=== PATIENT | female | born 1980 | race Caucasian/White ===

== ENCOUNTER 2018-08-29 15:44 | Emergency (ER) | payer OTHER ==
[2018-08-29 16:34] VITALS: BP 113/53
--- NOTE | 2018-08-29 17:02 | RAD ---
HISTORY: PAIN S/P TRAUMA COMPARISONS: None VIEWS: 3 , Frontal, lateral, and oblique views of the left ankle FINDINGS: BONE DENSITY: Normal. BONES: There is no displaced fracture. There is a posterior calcaneal enthesophyte. JOINTS: There is no arthropathy. ALIGNMENT: There is no dislocation. SOFT TISSUES: Unremarkable. OTHER FINDINGS: None. IMPRESSION: NO ACUTE OSSEOUS INJURY. IF SYMPTOMS PERSIST, RECOMMEND REPEAT IMAGING.
--- NOTE | 2018-08-29 17:15 | UC ---
Lower Extremity/Ankle HPI - HPI Summary HPI Summary: 3-year-old woman comes to clinic today with a chief complaint of left ankle pain. Patient reports this happened about a week and half ago while at work. She was walking backwards and she twisted her left ankle. The pains got worse over the week and a half. Pain now radiates up into her low back. She does have a history of low back problems and has had sciatica in the past. She does not feel like the pain starts in the back and goes down to the ankle. Pain is worse with certain motions of the ankle. No numbness or weakness. Patient reports she's been taking ibuprofen 800 mg every 4 hours. - History of Current Complaint Chief Complaint: UCLowerExtremity Stated Complaint: ANKLE INJURY Time Seen by Provider: 08/29/18 17:14 Pain Intensity: 6 - Allergies/Home Medications Allergies/Adverse Reactions: Allergies Allergy/AdvReac Type Severity Reaction Status Date / Time Adhesive Tape Allergy Mild Rash Verified 08/29/18 16:35 bacitracin Allergy Rash Verified 08/29/18 16:35 [From Triple Antibiotic] neomycin Allergy Rash Verified 08/29/18 16:35 [From Triple Antibiotic] polymyxin B Allergy Rash Verified 08/29/18 16:35 [From Triple Antibiotic] Home Medications: Home Medications ALPRAZolam TAB* [Xanax TAB*] 0.5 mg PO DAILY PRN 08/29/18 [History Confirmed ] Ibuprofen TAB* [Motrin TAB* 800 MG] 800 mg PO Q4H PRN 08/29/18 [History Confirmed 08/29/18] lamoTRIgine TAB(*) [LaMICtal TAB(*)] 200 mg PO DAILY 08/29/18 [History Confirmed 08/29/18] PMH/Surg Hx/FS Hx/Imm Hx Psychological History: Depression - Surgical History Surgical History: Yes Surgery Procedure, Year, and Place: 2007 [facility] - Family History Known Family History: Negative: Diabetes - Social History Alcohol Use: None Substance Use Type: None Smoking Status (MU): Former Smoker Review of Systems Constitutional: Negative Skin: Negative Eyes: Negative ENT: Negative Respiratory: Negative Cardiovascular: Negative Gastrointestinal: Negative Motor: Negative Neurovascular: Negative Musculoskeletal: Other: - SEE HPI Neurological: Negative Psychological: Negative Is Patient Immunocompromised?: No All Other Systems Reviewed And Are Negative: Yes Physical Exam Triage Information Reviewed: Yes Appearance: Well-Appearing, No Pain Distress, Well-Nourished Vital Signs: Initial Vital Signs Temp 98.3 F 08/29/18 16:27 Pulse 64 08/29/18 16:27 Resp 16 08/29/18 16:27 BP 113/53 08/29/18 16:27 Pulse Ox 99 08/29/18 16:27 Eye Exam: Normal Eyes: Positive: Conjunctiva Clear Neck exam: Normal Neck: Positive: Supple, Nontender Respiratory: Positive: No respiratory distress Musculoskeletal: Positive: Other: - Patient has mild tenderness left lower back. There is some swelling on the lateral aspect of the ankle just distal to the fibula. This is tender to palpation. The sole of foot is nontender to palpation the rest is nontender to palpation. Normal capillary refill normal pulses no sensation deficits. Neurological Exam: Normal Neurological: Positive: Alert, Muscle Tone Normal Psychological Exam: Normal Psychological: Positive: Age Appropriate Behavior Skin Exam: Normal Lower Extremity Course/Dx - Course Course Of Treatment: Order Information: ANKLE LEFT 3+VWS. Accession Number: [id number]. CPT: 12082. HISTORY: PAIN S/P TRAUMA. COMPARISONS: None. VIEWS : 3 , Frontal, lateral, and oblique views of the left ankle. FINDINGS: BONE DENSITY: Normal. BONES: There is no displaced fracture. There is a posterior calcaneal enthesophyte. JOINTS: There is no arthropathy. ALIGNMENT: There is no dislocation. SOFT TISSUES: Unremarkable. OTHER FINDINGS: None. IMPRESSION : NO ACUTE OSSEOUS INJURY. IF SYMPTOMS PERSIST, RECOMMEND REPEAT IMAGING. ____ . <Electronically signed by Mukesh Medellin MD in OV> 08/29/18 [id number]. I discussed the x-ray reports with the patient. I also discussed with the patient the correct dosing of ibuprofen. I let her know to not take more than a total of 2400 mg a day. The plan is Scott wrap and gel splint. Patient declined crutches. Prescription for [place] and only correct dosing of ibuprofen. Follow-up with primary care doctor recheck here sooner if worse. - Differential Dx/Diagnosis Provider Diagnoses: ANKLE SPRAIN Discharge - Sign-Out/Discharge Documenting (check all that apply): Patient Departure All imaging exams completed and their final reports reviewed: Yes - Discharge Plan Condition: Stable Disposition: HOME Prescriptions: HYDROcodone/ACETAMIN 5-325 MG* [[place] 5-325 TAB*] 1 tab PO Q4H PRN #20 tab MDD 6 PRN Reason: Pain Patient Education Materials: Ankle Sprain (ED), Sciatica (ED) Forms: *Work Release Referrals: Sajan Estrada MD [Primary Care Provider] - Additional Instructions: FOLLOW UP WITH YOUR DOCTOR. GET RECHECKED FOR ANY WORSENING OF YOUR CONDITION OR QUESTIONS OR CONCERNS. - Billing Disposition and Condition Condition: STABLE Disposition: Home
== END 2018-08-29 17:56 | disposition home or self-care (01) ==
LOC: UCEAST 15:44
DX: S93.402A Sprain of unspecified ligament of left ankle, initial encounter (principal); M54.5 Low back pain; F32.9 Major depressive disorder, single episode, unspecified; Z88.2 Allergy status to sulfonamides; Z88.1 Allergy status to other antibiotic agents; Z91.048 Other nonmedicinal substance allergy status; Z79.899 Other long term (current) drug therapy; Z87.891 Personal history of nicotine dependence; X50.9XXA Other and unspecified overexertion or strenuous movements or postures, initial encounter; Y92.9 Unspecified place or not applicable
CPT/HCPCS: 99213; G0463

== ENCOUNTER 2018-10-17 11:09 | Emergency (ER) | payer OTHER ==
[2018-10-17 11:35] VITALS: BP 111/68
[2018-10-17] MEDS ORDERED: Tetracaine 0.5% OPTH.SOL 4 ML* 1 DROP BTL LEFT EYE ONE (12:10)
[2018-10-17] MEDS ORDERED: Fluorescein Sodium TOPICAL* 1 MG TEST STRIP OPHTHALMIC ONE (12:10)
[2018-10-17] MEDS ORDERED: Tetan/Diph/Pertus SYR(Tdap)* 0.5 ML SYR(BOOSTRIX) use SYR IM ONE (12:14)
--- NOTE | 2018-10-17 12:32 | ED ---
Throat Pain/Nasal Congestion - HPI Summary HPI Summary: Pt presents w/ Lt eye injury prior to arrival. 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 No pain but had FB sensation and "whitish/blurred" area in vision over Lt central eye. Unsure of last tetanus vaccine. No simi visual loss - eye is watery from irritation but no bleeding. No other sx as a result of injury. Does not wear contact lenses. Allergic to bacitracin, neomycin. - History of Current Complaint Chief Complaint: UCEye Time Seen by Provider: 10/17/18 11:52 Hx Obtained From: Patient - Allergies/Home Medications Allergies/Adverse Reactions: Allergies Allergy/AdvReac Type Severity Reaction Status Date / Time Adhesive Tape Allergy Mild Rash Verified 10/17/18 11:35 bacitracin Allergy Rash Verified 10/17/18 11:35 [From Triple Antibiotic] neomycin Allergy Rash Verified 10/17/18 11:35 [From Triple Antibiotic] polymyxin B Allergy Rash Verified 10/17/18 11:35 [From Triple Antibiotic] ziprasidone [From Geodon] Allergy See Comment Verified 10/17/18 11:35 Home Medications: Home Medications Lurasidone(*) [Latuda] 20 mg PO DAILY 10/17/18 [History Confirmed 10/17/18] PMH/Surg Hx/FS Hx/Imm Hx Previously Healthy: Yes Endocrine/Hematology History: Denies: Hx Anticoagulant Therapy, Autoimmune Disease Sensory History: Denies: Hx Contacts or Glasses Opthamlomology History: Denies: Hx Contacts or Glasses - Surgical History Surgery Procedure, Year, and Place: 2007 [facility] - Immunization History Immunizations Up to Date: Unable to Obtain/Confirm Infectious Disease History: No Infectious Disease History: Denies: Hx of Known/Suspected MRSA, Traveled Outside the [place] in Last 30 Days - Family History Known Family History: Negative: Diabetes - Social History Occupation: Employed Full-time - [employer] Lives: With Family Alcohol Use: Occasionally Hx Substance Use: No Substance Use Type: Reports: None Hx Tobacco Use: Yes - not currently Smoking Status (MU): Former Smoker Review of Systems Constitutional: Negative Eyes: Other - Lt eye sx ENT: Negative Gastrointestinal: Negative Negative: Vomiting, Nausea Positive: no symptoms reported Skin: Negative Negative: Bruising - no skin injury as a result Neurological: Negative Positive: Anxious - upset that she's injured herself 2x at work in a short period of time All Other Systems Reviewed And Are Negative: Yes Physical Exam Triage Information Reviewed: Yes Vital Signs On Initial Exam: Initial Vitals Temp Pulse Resp BP Pulse Ox 98.5 F 75 14 111/68 97 10/17/18 11:31 1218 11:31 12 11:31 12 11:31 12 11:31 Vital Signs Reviewed: Yes Appearance: Positive: Well-Appearing, No Pain Distress, Well-Nourished Skin: Positive: Warm, Skin Color Reflects Adequate Perfusion, Dry - no erythema , no edema about the Lt eye/face Head/Face: Positive: Normal Head/Face Inspection Eyes: Positive: EOMI, MARTIN - no photophobia, Conjunctiva Clear, Discharge - watery, Other: - Lt central cornea with fine white linear abrasion seen with natrual light (appears to be superficial) - confirmed w/ fluoresceine uptake application and Wood's lamp; a 2nd abrasion is noted just medial and superior to longer linear lac (also appears to be superficial) - no FB bserved; (-) Siedel's sign ENT: Positive: Normal ENT inspection, Hearing grossly normal, Pharynx normal Respiratory/Lung Sounds: Positive: Breath Sounds Present Cardiovascular: Positive: Normal Musculoskeletal: Positive: Normal, Strength/ROM Intact Neurological: Positive: Normal, Sensory/Motor Intact, Alert, Oriented to Person Place, Time, CN Intact II-III, Other - all 4 visual anderson tested unilaterally and bilaterally w/ loss or change in vision Psychiatric: Positive: Anxious - tearful at times but consolable - reports this is not d/t pain but rather feeling upset about incident - relieved w/ dx and tx plan Procedures - Eye Procedure Left Alcaine Drops Administered: No - tetracaine + fluoresceine Eye Irrigated w/ Saline (ccs): 3 Diagnostics - Vital Signs Vital Signs Temp Pulse Resp BP Pulse Ox 10/17/18 11:31 98.5 F 75 14 111/68 97 - Laboratory Lab Statement: Any lab studies that have been ordered have been reviewed, and results considered in the medical decision making process. EENT Course/Dx - Diagnoses Provider Diagnoses: Left corneal abrasion Discharge - Sign-Out/Discharge Documenting (check all that apply): Patient Departure All imaging exams completed and their final reports reviewed: No Studies - Discharge Plan Condition: Stable Disposition: HOME Prescriptions: Ciprofloxacin 0.3% OPTH.DUANE* [Cipro 0.3% Opth*] 2 drop LEFT EYE Q2H #1 btl Patient Education Materials: Corneal Abrasion (ED) Forms: *Work Release Referrals: Jose Banks MD [Medical Doctor] - Additional Instructions: Use medicated eye drops as directed. Follow-up with Dr. Banks tomorrow - call today to schedule an appointment *If you develop acute eye pain, swelling, change in vision, headache, fever, go to the ED - Billing Disposition and Condition Condition: STABLE Disposition: Home
== END 2018-10-17 12:42 | disposition home or self-care (01) ==
LOC: UCEAST 11:09
DX: S05.02XA Injury of conjunctiva and corneal abrasion without foreign body, left eye, initial encounter (principal); Z88.8 Allergy status to other drugs, medicaments and biological substances; W22.8XXA Striking against or struck by other objects, initial encounter; Y93.H2 Activity, gardening and landscaping; Y92.214 College as the place of occurrence of the external cause; Z87.891 Personal history of nicotine dependence; Y99.0 Civilian activity done for income or pay
CPT/HCPCS: 90715; 99212; A9270-GY; G0463

== ENCOUNTER 2019-10-13 13:09 | Emergency (ER) | payer OTHER ==
[2019-10-13 13:26] VITALS: BP 120/79
[2019-10-13] MEDS ORDERED: Ibuprofen TAB* 600 MG PO ONE (13:56)
[2019-10-13] MEDS ORDERED: Ketorolac INJ* 30 MG/ML 1 ML VIAL IM ONE (14:01)
--- NOTE | 2019-10-13 14:06 | UC ---
Shoulder Pain HPI - HPI Summary HPI Summary: Pt presents with left shoulder pain progressive x 2 weeks. pt is RHD. AT work pt has been shoveling and holding large salt bucket under left arm while throwing salt. pt has taken APAP 500mg and motrin 400mg with little improvement. no other injuries. No neck or back pain no elbow, wrist pain no previous injury to shoulder Pt's medications as entered in EMR by screw remover were reviewed - History of Current Complaint Chief Complaint: UCUpperExtremity Stated Complaint: SHOULDER INJURY Time Seen by Provider: 10/13/19 13:29 Hx Obtained From: Patient, Family/Secret Service Agent Hx Last Menstrual Period: iud ?: No Pain Intensity: 10 - Allergies/Home Medications Allergies/Adverse Reactions: Allergies Allergy/AdvReac Type Severity Reaction Status Date / Time Adhesive Tape Allergy Mild Rash Verified 10/15/19 07:23 bacitracin Allergy Rash Verified 10/15/19 07:23 [From Triple Antibiotic] neomycin Allergy Rash Verified 10/15/19 07:23 [From Triple Antibiotic] polymyxin B Allergy Rash Verified 10/15/19 07:23 [From Triple Antibiotic] ziprasidone [From Geodon] Allergy See Comment Verified 10/15/19 07:23 Home Medications: Home Medications Brexpiprazole (Nf) [Rexulti] 1 tab PO DAILY 10/13/19 [History Confirmed 10/13/19 ] PMH/Surg Hx/FS Hx/Imm Hx Previously Healthy: Yes - Surgical History Surgical History: Yes Surgery Procedure, Year, and Place: 2007 [facility] - Family History Known Family History: Positive: Non-Contributory Negative: Diabetes - Social History Occupation: Employed Full-time Lives: With Family Alcohol Use: Occasionally Substance Use Type: None Smoking Status (MU): Former Smoker Review of Systems All Other Systems Reviewed And Are Negative: Yes Motor: Positive: Other - right shoulder pain Physical Exam - Summary Physical Exam Summary: Vital Signs Reviewed: Yes A+Ox3,- holding arm to body -obvious pain Eyes: Conjunctiva Clear, MARTIN. EOM intact and full ENT: Hearing grossly normal TM x 2 clear, mmoist, uvula midline, no exudate, no erythema Neck: Positive: Supple Respiratory: Positive: No respiratory distress, No accessory muscle use + CTA throughout no w/r Cardiovascular: RRR nl s1, s2 no m/r CBT <2 sec 2+ radial/ulnar abd soft + BS nt/nd no guarding, no distension Musculoskeletal Exam: No pain c/t/l/s Full AROM c spin Full AROM LE b/j LUE: full ROM RUE: pain with palpation left prox lateral humerus pain with extension and abduction - pain along lateral humerus - no crepitus + flex.ext elbow, wrist + pronate/supinate Neurological: Positive: Alert, + sensation throughout + thumb up, a ok finger cross, finger spread + lateral patch sensation Psychological: Positive: Normal Response To senior accounting analyst Skin: Positive: no rash, no ecchymosis, small non-suturable abraison right anterior forehead (1 cm) non suturable Vital Signs: Initial Vital Signs Temp 98 F 10/13/19 13:23 Pulse 80 10/13/19 13:23 Resp 18 10/13/19 13:23 BP 120/79 10/13/19 13:23 Pulse Ox 100 10/13/19 13:23 Re-Evaluation - Re-Evaluation First Eval Comment: delay in xray read - reviewed with pt - concernd for calcified tendonitis. demonstrated circles, flex/ext elbow. sling. motrin/apap. work note. f/u with [employer] and sports. pt omfortable and in agreement with plan Shoulder Course/Dx - Course Course Of Treatment: Pt with left shoulder pain progressive after shoveling snow and throwing salt at worl. Pt is RHD. no other injuries on exam, pt apparent discomfort + TTP let latera prox shoulder pain increases with active movement > 45 slight improved passive will give IM toradol - no analgesia taken today sling imaging reassess - Differential Dx/Diagnosis Provider Diagnosis: Calcific tendinitis of left shoulder Discharge ED - Sign-Out/Discharge Documenting (check all that apply): Patient Departure All imaging exams completed and their final reports reviewed: No - Discharge Plan Condition: Stable Disposition: HOME Prescriptions: HYDROcodone/ACETAMIN 5-325 MG* [[place] 5-325 TAB*] 1 tab PO Q6H PRN #20 tab MDD 4 PRN Reason: Pain Patient Education Materials: Rotator Cuff Tendinitis (ED) Forms: *Work Release Referrals: [facility] [Provider Group] Alberto Rock MD [Medical Doctor] - Jessica Cruz MD [Primary Care Provider] - Additional Instructions: - Wear sling for comfort and support. relax your shoulder so the sling holds the weight of your shoulder - Take your arm outside of your sling and fully bend/stretching of elbow and makes small circles at your shoulder as demonstrated in the urgent care - Apply ice (20 min at a time) every 2-3 hours for the next 2 days -Okay to alternate ibuprofen (Advil, Motrin) and Tylenol every 3 hours for pain. Take with food. Do NOT take for more than 4-5 days. - Take steroid medication as prescribed until gone -Contact the sports medicine provider and Dr. Rock on Tuesday to schedule a follow-up appointment. . Contact your doctor or return with questions or concerns - Billing Disposition and Condition Condition: STABLE Disposition: Home
--- NOTE | 2019-10-13 15:38 | UC ---
- Progress Note Progress Note: RADIOLOGY REPORT REVIEWED. CONFIRMS CALCIFIC TENDINOSIS. NO FRACTURE. NO CHANGE IN MGMT. Course/Dx - Diagnoses Provider Diagnoses: Calcific tendinitis of left shoulder Discharge ED - Sign-Out/Discharge Documenting (check all that apply): Post-Discharge Follow Up All imaging exams completed and their final reports reviewed: Yes - Discharge Plan Condition: Stable Disposition: HOME Patient Education Materials: Rotator Cuff Tendinitis (ED) Forms: *Work Release Referrals: [facility] [Provider Group] Alberto Rock MD [Medical Doctor] - Jessica Cruz MD [Primary Care Provider] - Additional Instructions: - Wear sling for comfort and support. relax your shoulder so the sling holds the weight of your shoulder - Take your arm outside of your sling and fully bend/stretching of elbow and makes small circles at your shoulder as demonstrated in the urgent care - Apply ice (20 min at a time) every 2-3 hours for the next 2 days -Okay to alternate ibuprofen (Advil, Motrin) and Tylenol every 3 hours for pain. Take with food. Do NOT take for more than 4-5 days. - Take steroid medication as prescribed until gone -Contact the sports medicine provider and Dr. Rock on Tuesday to schedule a follow-up appointment. . Contact your doctor or return with questions or concerns - Billing Disposition and Condition Condition: STABLE Disposition: Home
== END 2019-10-13 15:20 | disposition home or self-care (01) ==
LOC: UCEAST 13:09
DX: M75.32 Calcific tendinitis of left shoulder (principal); Z91.09 Other allergy status, other than to drugs and biological substances; Z88.1 Allergy status to other antibiotic agents; Z88.8 Allergy status to other drugs, medicaments and biological substances; Z87.891 Personal history of nicotine dependence
CPT/HCPCS: 99212; G0463; J1885

== ENCOUNTER 2019-10-15 07:08 | Emergency (ER) | payer SELFPAY ==
[2019-10-15 07:31] VITALS: BP 116/65
--- NOTE | 2019-10-15 07:57 | UC ---
Shoulder Pain HPI - HPI Summary HPI Summary: Ms. Bhatia was seen here a couple days ago after hurting her left shoulder. She has been wearing a sling and taking ibuprofen as instructed but the pain is keeping her from sleeping. She is here to request pain medication. - History of Current Complaint Chief Complaint: UCUpperExtremity Stated Complaint: SHOLDER PAIN Time Seen by Provider: 10/15/19 07:34 Hx Obtained From: Patient, Family/Batteryman Hx Last Menstrual Period: no period Onset/Duration: Sudden Onset Timing: Constant Severity Initially: Severe Severity Currently: Severe Pain Intensity: 9 Character: Aching Aggravating Factor(s): Movement Alleviating Factor(s): Nothing Associated Signs And Symptoms: Positive: Negative - Allergies/Home Medications Allergies/Adverse Reactions: Allergies Allergy/AdvReac Type Severity Reaction Status Date / Time Adhesive Tape Allergy Mild Rash Verified 10/15/19 07:23 bacitracin Allergy Rash Verified 10/15/19 07:23 [From Triple Antibiotic] neomycin Allergy Rash Verified 10/15/19 07:23 [From Triple Antibiotic] polymyxin B Allergy Rash Verified 10/15/19 07:23 [From Triple Antibiotic] ziprasidone [From Geodon] Allergy See Comment Verified 10/15/19 07:23 Home Medications: Home Medications Acetaminophen [Acetaminophen Extra Strength] 1,000 mg PO ONCE 10/15/19 [History Confirmed 10/15/19] PMH/Surg Hx/FS Hx/Imm Hx Psychological History: Anxiety - Surgical History Surgical History: Yes Surgery Procedure, Year, and Place: 2007 [facility]. 2016 [facility] - Family History Known Family History: Negative: Diabetes - Social History Alcohol Use: Occasionally Substance Use Type: None Smoking Status (MU): Former Smoker Review of Systems All Other Systems Reviewed And Are Negative: Yes Motor: Positive: Decreased ROM Neurovascular: Positive: Negative Musculoskeletal: Positive: Decreased ROM Physical Exam - Summary Physical Exam Summary: She is nontoxic in appearance with stable vitals. Triage Information Reviewed: Yes Appearance: Well-Appearing, Obese Vital Signs: Initial Vital Signs Temp 99 F 10/15/19 07:25 Pulse 89 10/15/19 07:25 Resp 18 10/15/19 07:25 BP 116/65 10/15/19 07:25 Pulse Ox 100 10/15/19 07:25 Vital Signs Reviewed: Yes Cardiovascular: Positive: Pulses Normal Musculoskeletal: Positive: ROM Limited @ Shoulder Course/Dx - Course Course Of Treatment: Her pain is not currently controlled. I will give her a short course of Sixes. We discussed the issues with taking an opioid and she agreed to stop taking her Xanax while taking it. She takes Xanax when necessary at night. - Differential Dx/Diagnosis Provider Diagnosis: Shoulder injury Discharge ED - Sign-Out/Discharge Documenting (check all that apply): Patient Departure All imaging exams completed and their final reports reviewed: No Studies - Discharge Plan Condition: Stable Disposition: HOME Prescriptions: HYDROcodone/ACETAMIN 5-325 MG* [Sixes 5-325 TAB*] 1 tab PO Q6H PRN #20 tab MDD 4 PRN Reason: Pain Patient Education Materials: Calcific Tendinitis (ED) Referrals: Jessica Cruz MD [Primary Care Provider] - Additional Instructions: Stop taking Xanax while taking the Sixes. - Billing Disposition and Condition Condition: STABLE Disposition: Home
== END 2019-10-15 08:00 | disposition home or self-care (01) ==
LOC: UCEAST 07:08
DX: S49.92XA Unspecified injury of left shoulder and upper arm, initial encounter (principal); Z91.09 Other allergy status, other than to drugs and biological substances; Z88.1 Allergy status to other antibiotic agents; Z88.8 Allergy status to other drugs, medicaments and biological substances; Z87.891 Personal history of nicotine dependence; X58.XXXA Exposure to other specified factors, initial encounter; Y92.9 Unspecified place or not applicable
CPT/HCPCS: 99212; G0463